=== PATIENT | female | born 1980 | race Hispanic/Latino ===

== ENCOUNTER 2020-11-05 18:05 | Inpatient (IN) | payer OTHER ==
[~2020-11-05] VITALS: Ht 165.1 cm; Wt 122.5 kg
[2020-11-05] MEDS ORDERED: ONDANSETRON HCL INJ 2MG/ML 2ML 2 MG/ML VIAL IV STA (18:28)
[2020-11-05] MEDS ORDERED: MORPHINE SULFATE INJ 4 MG/ML INJ 1ML IV STA (18:28)
[2020-11-05] MEDS ORDERED: ONDANSETRON HCL INJ 2MG/ML 2ML 2 MG/ML VIAL ONE (19:13)
[2020-11-05] MEDS ORDERED: MORPHINE SULFATE INJ 4 MG/ML INJ 1ML ONE ×2 (19:14→22:38)
[2020-11-05] MEDS ORDERED: PIPER-TAZ 3.375 GM 50 ML IV ONE (20:15)
[2020-11-05] MEDS ORDERED: MORPHINE SULFATE 2 MG/ML SYR 1ML IV STA (20:22)
[2020-11-05] MEDS ORDERED: HYDRALAZINE HCL 20 MG/ML VIAL IV STA (20:22)
[2020-11-05] MEDS ORDERED: ONDANSETRON HCL INJ 2MG/ML 2ML 2 MG/ML VIAL IV PRN (20:45)
[2020-11-05] MEDS ORDERED: SODIUM CHLORIDE FLUSH 10 ML SYR INJ PRN (20:45)
[2020-11-05] MEDS ORDERED: HYDRALAZINE HCL 20 MG/ML VIAL IV PRN (20:45)
[2020-11-05] MEDS ORDERED: MORPHINE SULFATE INJ 4 MG/ML INJ 1ML IV PRN (21:00)
[2020-11-05] MEDS ORDERED: SODIUM CHLORIDE 0.9% 1000ML 1,000 ML ONE (22:38)
[2020-11-05] MEDS ORDERED: PIPER-TAZ 3.375 GM 50 ML ONE (22:39)
[2020-11-05] MEDS: SODIUM CHLORIDE 0.9% 1000ML 1,000 ML IV SCH (22:43)
[2020-11-05 23:40] VITALS: BP 168/90
[2020-11-05 23:44] VITALS: BP 168/90
[2020-11-05] MEDS ORDERED: LABETALOL HCL100 MG PO (23:58)
[2020-11-05] MEDS ORDERED: METFORMIN HCL500 MG PO (23:58)
[2020-11-06] VITALS (8 sets, daily range): BP systolic 148–168; BP diastolic 69–98
[2020-11-06] MEDS: SODIUM CHLORIDE 0.9% 1000ML 1,000 ML IV SCH ×3 (04:45→20:45)
[2020-11-06 05:30] LABS: BASOPHILS # (AUTO) 0.1 (0.0-0.1); BASOPHILS % 0.6 % (0.0-1.0); EOSINOPHILS # (AUTO) 0.1 (0.0-0.4); EOSINOPHILS % 0.6 % (0.0-6.0); HEMATOCRIT 32.7 % (34.2-44.1); HEMOGLOBIN 9.5 g/dL (12.0-16.0); LYMPHOCYTES # (AUTO) 1.4 (1.0-3.2); LYMPHOCYTES % 11.4 % (18.0-39.1); MEAN CORPUSCULAR HEMOGLOBIN 20.2 pg (28-32); MEAN CORPUSCULAR HGB CONC 29.1 g/dL (31-35); MEAN CORPUSCULAR VOLUME 69.6 fL (81-99); MONOCYTES # (AUTO) 0.9 (0.2-0.8); MONOCYTES % 7.4 % (4.4-11.3); NEUTROPHILS # (AUTO) 9.9 (2.1-6.9); NEUTROPHILS % 78.7 % (38.7-80.0); PLATELET COUNT 353 x10e3/uL (140-360); RED CELL DISTRIBUTION WIDTH 19.8 % (11.7-14.4)
[2020-11-06 05:58] LABS: ALANINE AMINOTRANSFERASE 22 IU/L (0-55); ALBUMIN 3.1 g/dL (3.5-5.0); ALBUMIN/GLOBULIN RATIO 0.8 (0.8-2.0); ALKALINE PHOSPHATASE 57 IU/L (40-150); ANION GAP 16.6 mmol/L (8-16); CALCIUM 7.8 mg/dL (8.4-10.2); CARBON DIOXIDE 18 mmol/L (22-29); CHLORIDE 103 mmol/L (98-107); EST GLOMERULAR FILTRATION RATE > 60 ML/MIN (60-); GLUCOSE 245 mg/dL (74-118); POTASSIUM 3.6 mmol/L (3.5-5.1); SODIUM 134 mmol/L (136-145)
[2020-11-06 06:37] LABS: BUN/CREATININE RATIO 6 (6-25)
[2020-11-06] MEDS ORDERED: MORPHINE SULFATE 2 MG/ML SYR 1ML IV PRN (07:15)
[2020-11-06 08:10] LABS: BLOOD UREA NITROGEN 5 mg/dL (7-26)
[2020-11-06 09:42] LABS: ANISOCYTOSIS SLIGHT; HYPOCHROMASIA SLIGHT; MICROCYTOSIS SLIGHT; PLATELET ESTIMATE ADEQUATE; RBC MORPHOLOGY COMMENT NORMAL
[2020-11-06 09:43] LABS: PLATELET MORPHOLOGY COMMENT FEW LARGE
[2020-11-06 09:44] LABS: PLATELET CLUMPS RARE
[2020-11-06] MEDS ORDERED: CEFTRIAXONE SOD 1 GM/NS 50 ML 50 ML IV ONE (12:30)
[2020-11-06] MEDS ORDERED: SEVOFLURANE INHAL SOLN 250 ML PEN BTL ONE (14:04)
[2020-11-06] MEDS ORDERED: ONDANSETRON HCL INJ 2MG/ML 2ML 2 MG/ML VIAL ONE (14:04)
[2020-11-06] MEDS ORDERED: PROPOFOL IV EMULSION 10 MG/ML 20 ML VIAL ONE (14:04)
[2020-11-06] MEDS ORDERED: ROCURONIUM BROMIDE 10 MG/ML 5ML VIAL IV ONE (14:04)
[2020-11-06] MEDS ORDERED: LIDOCAINE HCL 2% LOCAL INJ 5 ML SDV VIAL INJ ONE (14:04)
[2020-11-06] MEDS ORDERED: DEXAMETHASONE SOD PHOS INJ 4 MG/ML VIAL ONE (14:04)
[2020-11-06] MEDS ORDERED: FENTANYL CITRATE/PF 100MCG/2 ML INJ ONE (14:10)
[2020-11-06] MEDS ORDERED: SUGAMMADEX SODIUM 200 MG/2 ML VIAL IV ONE (14:16)
[2020-11-06] MEDS ORDERED: ACETAMINOPHEN 1000 MG/100 ML 100 ML IV ONE (14:17)
[2020-11-06] MEDS ORDERED: BUPIVACAINE 0.25% 30ML SDV ONE (15:03)
[2020-11-06] MEDS ORDERED: HYDRALAZINE HCL 20 MG/ML VIAL ONE (15:31)
[2020-11-06] MEDS ORDERED: HYDROCODONE/APAP 7.5MG-325MG 1 EA TAB PO PRN (16:00)
[2020-11-06] MEDS ORDERED: HYDROMORPHONE 1MG/1ML INJ IV PRN (16:00)
[2020-11-06] MEDS ORDERED: DEXTROSE 50% SYRINGE 50 ML IV PRN (16:15)
[2020-11-06] MEDS: PANTOPRAZOLE 40 MG 10ML VIAL IV SCH (18:12)
[2020-11-06] MEDS: PIPER-TAZ 3.375 GM 50 ML IV SCH (18:12)
[2020-11-06] MEDS: INSULIN REGULAR, HUMAN 100 UNIT/1 ML 3ML VIAL SQ SCH (18:13)
[2020-11-06] MEDS: ACETAMINOPHEN 325 MG TAB PO PRN (20:59)
[2020-11-07 00:03] VITALS: BP 133/83
[2020-11-07] MEDS: INSULIN REGULAR, HUMAN 100 UNIT/1 ML 3ML VIAL SQ SCH ×3 (00:14→11:59)
[2020-11-07] MEDS: SODIUM CHLORIDE 0.9% 1000ML 1,000 ML IV SCH ×2 (04:00→11:58)
[2020-11-07 04:20] VITALS: BP 144/76
[2020-11-07 05:43] LABS: BASOPHILS # (AUTO) 0.1 (0.0-0.1); BASOPHILS % 0.5 % (0.0-1.0); EOSINOPHILS % 0.3 % (0.0-6.0); HEMATOCRIT 34.1 % (34.2-44.1); HEMOGLOBIN 9.7 g/dL (12.0-16.0); LYMPHOCYTES # (AUTO) 1.2 (1.0-3.2); LYMPHOCYTES % 8.2 % (18.0-39.1); MEAN CORPUSCULAR HEMOGLOBIN 20.1 pg (28-32); MEAN CORPUSCULAR HGB CONC 28.4 g/dL (31-35); MEAN CORPUSCULAR VOLUME 70.6 fL (81-99); MONOCYTES % 6.7 % (4.4-11.3); NEUTROPHILS # (AUTO) 11.8 (2.1-6.9); NEUTROPHILS % 82.8 % (38.7-80.0); PLATELET COUNT 345 x10e3/uL (140-360); RED BLOOD COUNT 4.83 x10e6/uL (3.6-5.1); RED CELL DISTRIBUTION WIDTH 20.2 % (11.7-14.4)
[2020-11-07] MEDS: PIPER-TAZ 3.375 GM 50 ML IV SCH ×3 (06:04→11:53)
[2020-11-07 06:13] LABS: ANION GAP 17.3 mmol/L (8-16); BLOOD UREA NITROGEN 5 mg/dL (7-26); BUN/CREATININE RATIO 6 (6-25); CALCIUM 7.5 mg/dL (8.4-10.2); CARBON DIOXIDE 17 mmol/L (22-29); CHLORIDE 105 mmol/L (98-107); CREATININE, SERUM 0.83 mg/dL (0.57-1.11); EST GLOMERULAR FILTRATION RATE > 60 ML/MIN (60-); GLUCOSE 219 mg/dL (74-118); POTASSIUM 3.3 mmol/L (3.5-5.1); SODIUM 136 mmol/L (136-145)
[2020-11-07 07:51] VITALS: BP 142/86
[2020-11-07 07:53] VITALS: BP 142/86
[2020-11-07 11:49] VITALS: BP 153/88
[2020-11-07] MEDS: PANTOPRAZOLE 40 MG 10ML VIAL IV SCH (15:27)
[2020-11-07 15:41] VITALS: BP 149/95
[2020-11-07] MEDS: ACETAMINOPHEN 325 MG TAB PO PRN (16:12)
[2020-11-07] MEDS ORDERED: KEFLEX500 MG PO (16:51)
[2020-11-07] MEDS ORDERED: TYLENOL # 31 EA PO (16:52)
== END 2020-11-07 17:21 | disposition home or self-care (01) | DRG 819 ==
LOC: FSED 18:10 → OBSVTOIN 20:39 → ERHOLD 20:39 → INTOOBSV 20:39 → MED/SURG 23:13
PROVIDERS: ADMIT Surgery; ATTEND Surgery
PROC: 0DTJ4ZZ Resection of Appendix, Percutaneous Endoscopic Approach (ICD-10-PCS; principal; 2020-11-06 12:30)
DX: O24.911 Unspecified diabetes mellitus in pregnancy, first trimester (principal); O99.611 Diseases of the digestive system complicating pregnancy, first trimester; K37 Unspecified appendicitis; Z3A.01 Less than 8 weeks gestation of pregnancy; I16.0 Hypertensive urgency
CPT/HCPCS: 36415; 76705; 76801; 80048; 80053; 81003; 81025; 82948; 85025; 88304; 96361; 96372; 96374; 96375; 96376; 99284; C1766; J0360; J0696; J1100; J1817; J2001; J2270; J2405; J2543; J3010; J7030; U0002